=== PATIENT | male | born 1985 | race Caucasian/White ===

== ENCOUNTER 2020-05-08 02:01 | Emergency (ER) | payer OTHER ==
[2020-05-08 02:09] VITALS: BP 149/90; PULSE 88; RESP 18; TEMP 98.1
[2020-05-08] MEDS ORDERED: LIDOCAINE 1% INJ 10MG/ML (20 ML MDV) SQ ONE (02:53)
[2020-05-08] MEDS ORDERED: SULFAMETH-TMP DS STARTER PACK 2 TAB BTL PO STA (03:16)
--- NOTE | 2020-05-08 03:20 | ED ---
Skin/Abscess/FB HPI - General Chief complaint: Skin/Abscess/Foreign Body Stated complaint: Boil on bottom Time Seen by Provider: 05/08/20 02:42 Source: patient Mode of arrival: ambulatory Limitations: no limitations - History of Present Illness Initial comments: Tru is a 35-year-old male presents the ER for evaluation of a boil on the left butt cheek. The patient reports that this has been present for a few days, progressively worsening tenderness he's noted some drainage, no fevers, chills nausea or vomiting. No history of previous infections. - Related Data Previous Rx's Medication Instructions Recorded Sulfamethox-Tmp 800-160Mg [Bactrim 1 tab PO Q12HR #14 tab 05/08/20 DS 800-160 mg] Allergies Allergy/AdvReac Type Severity Reaction Status Date / Time No Known Allergies Allergy Verified 05/08/20 02:09 Review of Systems ROS Statement: Those systems with pertinent positive or pertinent negative responses have been documented in the HPI. ROS Other: All systems not noted in ROS Statement are negative. Past Medical History Past Medical History: No Reported History History of Any Multi-Drug Resistant Organisms: None Reported Past Surgical History: Tonsillectomy Past Psychological History: No Psychological Hx Reported Smoking Status: Current every day smoker Past Alcohol Use History: Occasional Past Drug Use History: Marijuana General Exam - General Exam Comments Initial Comments: Physical Exam GENERAL: Patient is well-developed and well-nourished. Patient is nontoxic and well-hydrated and is in no distress. HENT: Normocephalic, Atraumatic. EYES: PERRL, EOMI PULMONARY: Unlabored respirations. CARDIOVASCULAR: RRR Warm and well perfused extremities ABDOMEN: Non-distended SKIN: Area of cellulitis with induration and erythema on left buttock measures 6cm in diameter, central area of purulent drainage oozing : Deferred NEUROLOGIC: Alert and oriented Normal speech Normal gait MUSCULOSKELETAL: Moving all extremities with no apparent injury PSYCHIATRIC: No SI/HI Limitations: no limitations Course Vital Signs 05/08/20 02:05 Temperature 98.1 F Pulse Rate 88 Respiratory 18 Rate Blood Pressure 149/90 O2 Sat by Pulse 99 Oximetry Medical Decision Making - Medical Decision Making The patient was seen and evaluated history is obtained from the patient Patient has an area of cellulitis on the buttocks with a central area of abscess that is draining however he did recommend that we open it further to allow more efficient drainage, patient consented however did not tolerate lidocaine injection and then refused further attempts stated that he would take the oral antibiotics and try to continue promoting drainage in a hot shower Disposition Clinical Impression: Abscess of buttock, left, Cellulitis Disposition: HOME SELF-CARE Condition: Stable Additional Instructions: As we discussed the need to take hot showers keep the area clean and dry and try to promote drainage The antibiotics as prescribed Return to the ER if he gets any worse or he develop any fevers, vomiting inability to tolerate her antibiotics or any new or concerning symptoms Prescriptions: Sulfamethox-Tmp 800-160Mg [Bactrim DS 800-160 mg] 1 tab PO Q12HR #14 tab Is patient prescribed a controlled substance at d/c from ED?: No Referrals: None,Stated [Primary Care Provider] - 1-2 days
== END 2020-05-08 04:15 | disposition home or self-care (01) ==
LOC: EC 02:01
DX: L02.31 Cutaneous abscess of buttock (principal); L03.317 Cellulitis of buttock; F17.200 Nicotine dependence, unspecified, uncomplicated; Z53.29 Procedure and treatment not carried out because of patient's decision for other reasons
CPT/HCPCS: 99283; 96372; J2001